=== PATIENT | female | born 1950 | race Caucasian/White ===

== ENCOUNTER 2020-09-26 13:26 | Emergency (ER) | payer MEDICARE, BC ==
[2020-09-26] MEDS ORDERED: Sodium Chloride 0.9% 10 ML Syringe FLUSH PRN (13:40)
[2020-09-26] MEDS ORDERED: Diltiazem 50 MG/10 ML SDV IVPUSH ONE (13:41)
[2020-09-26] MEDS ORDERED: Diltiazem 100 MG in Sodium Chloride 0.9% 100 ML IV SCH (13:45)
--- NOTE | 2020-09-26 14:35 | CR ---
Chest: Portable view of the chest was obtained. Comparison: Prior chest x-ray of 02/22/18. Findings: Heart size and mediastinum: Mild tortuosity of the thoracic aorta seen. Heart size is normal for portable technique. No discrete mediastinal masses are seen. Lungs: Lungs appear clear. No acute parenchymal change is seen. No pleural thickening is seen. Osseous: Slight scoliosis is noted. Nothing acute is appreciated. Impression: 1. Nothing acute is appreciated on portable chest x-ray. Diagnostic code #2
[2020-09-26] MEDS ORDERED: Diltiazem IR 60 MG Tab PO ONE (15:07)
--- NOTE | 2020-09-26 15:07 | EDM.PDOC ---
ED HPI GENERAL MEDICAL PROBLEM - General Chief Complaint: Cardiovascular Problem Stated Complaint: [facility] Time Seen by Provider: 09/26/20 13:31 Source of Information: Reports: Patient History Limitations: Reports: No Limitations - History of Present Illness INITIAL COMMENTS - FREE TEXT/NARRATIVE: The patient presents by [facility] for atrial fibrillation with RVR. She has a history of this and SVT. She was seen by Dr Babb a few years ago for this and she was not put on anything because she was doing better. She has not had many episodes. She first noticed this about 36 hours ago at 2am. She said she is short of breath and lightheaded with exertion. She has no chest pain. She also feels weak. She has no fever, chills, cough, congestionm, runny nose, or abdominal pain. Onset: Sudden Duration: Day(s): Severity: Moderate Improves with: Reports: None Worsens with: Reports: None Associated Symptoms: Reports: Shortness of Breath. Denies: Chest Pain, Cough, Fever/Chills, Headaches, Nausea/Vomiting - Related Data Allergies Allergy/AdvReac Type Severity Reaction Status Date / Time No Known Allergies Allergy Verified 09/26/20 13:35 Home Meds: Home Meds Apixaban [Eliquis] 5 mg PO BID #60 tablet 09/26/20 [Rx] Diltiazem [Cardizem CD] 120 mg PO DAILY #30 cap.er 09/26/20 [Rx] Social & Family History - Tobacco Use Tobacco Use Status *Q: Former Tobacco User Used Tobacco, but Quit: Yes Month/Year Tobacco Last Used: 1979 - Caffeine Use Caffeine Use: Reports: Coffee, Soda - Recreational Drug Use Recreational Drug Use: No ED ROS GENERAL - Review of Systems Review Of Systems: See Below Constitutional: Reports: Malaise, Weakness, Fatigue. Denies: Fever, Chills HEENT: Reports: No Symptoms Respiratory: Reports: Shortness of Breath. Denies: Cough Cardiovascular: Reports: Lightheadedness. Denies: Chest Pain Endocrine: Reports: No Symptoms GI/Abdominal: Reports: No Symptoms : Reports: No Symptoms Musculoskeletal: Reports: No Symptoms ED EXAM, GENERAL - Physical Exam Exam: See Below Exam Limited By: No Limitations General Appearance: Alert, No Apparent Distress Ears: Normal External Exam Nose: Normal Inspection Head: Atraumatic, Normocephalic Neck: Normal Inspection Respiratory/Chest: No Respiratory Distress, Lungs Clear, Normal Breath Sounds Cardiovascular: No Edema, No Murmur, Tachycardia, Irregularly Irregular GI/Abdominal: Soft, Non-Tender, No Organomegaly, No Mass Back Exam: Normal Inspection Extremities: Normal Inspection Neurological: Alert, Oriented, No Motor/Sensory Deficits #1 Interpretation EKG Date: 09/26/20 Time: 11:52 Rhythm: A-Fib Rate (Beats/Min): 157 [place]: Normal QRS: Normal ST-T: Normal QT: Normal Course - Vital Signs Last Recorded V/S: Last Vital Signs Temp 97.8 F 09/26/20 13:31 Pulse 80 09/26/20 15:30 Resp 18 09/26/20 15:30 BP 114/80 09/26/20 15:30 Pulse Ox 98 09/26/20 15:30 - Orders/Labs/Meds Orders: Active Orders 24 hr Category Date Time Status Cardiac Monitoring [RC] . DIRECTED Care 09/26/20 13:40 Active Peripheral IV Care [RC] . DIRECTED Care 09/26/20 13:41 Active Diltiazem [Cardizem] 100 mg Med 09/26/20 13:45 Active Sodium Chloride 0.9% [Normal Saline] 100 ml IV TITRATE Sodium Chloride 0.9% [Saline Flush] Med 09/26/20 13:40 Active 10 ml FLUSH ASDIRECTED PRN Peripheral IV Insertion Adult [OM.PC] Stat Oth 09/26/20 13:40 Ordered Medication Orders Diltiazem HCl 100 mg/ Sodium (Chloride) 100 mls @ 10 mls/hr IV TITRATE [facility]; Protocol Last Admin: 09/26/20 14:15 Dose: 10 mg/hr, 10 mls/hr Documented by: CAROLINE Sodium Chloride (Saline Flush) 10 ml FLUSH ASDIRECTED PRN PRN Reason: Keep Vein Open Last Admin: 09/26/20 14:15 Dose: 10 ml Documented by: CAROLINE Labs: Laboratory Tests 09/26/20 09/26/20 Range/Units 14:10 14:10 WBC 7.92 (3.98-10.04) K/mm3 RBC 4.63 (3.98-5.22) M/mm3 Hgb 14.9 (11.2-15.7) gm/dl Hct 45.2 H (34.1-44.9) % MCV 97.6 H (79.4-94.8) fl MCH 32.2 (25.6-32.2) pg MCHC 33.0 (32.2-35.5) g/dl RDW Std Deviation 46.2 (36.4-46.3) fL Plt Count 302 (182-369) K/mm3 MPV 10.8 (9.4-12.3) fl Neut % (Auto) 70.6 (34.0-71.1) % Lymph % (Auto) 22.0 (19.3-51.7) % [place] % (Auto) 6.2 (4.7-12.5) % Eos % (Auto) 0.8 (0.7-5.8) Baso % (Auto) 0.3 (0.1-1.2) % Neut # (Auto) 5.60 (1.56-6.13) K/mm3 Lymph # (Auto) 1.74 (1.18-3.74) K/mm3 [place] # (Auto) 0.49 H (0.24-0.36) K/mm3 Eos # (Auto) 0.06 (0.04-0.36) K/mm3 Baso # (Auto) 0.02 (0.01-0.08) K/mm3 Sodium 142 (136-145) mEq/L Potassium 4.2 (3.5-5.1) mEq/L Chloride 105 (98-107) mEq/L Carbon Dioxide 29 (21-32) mEq/L Anion Gap 12.2 (5-15) BUN 19 H (7-18) mg/dL Creatinine 1.0 (0.55-1.02) mg/dL Est Cr Clr Drug Dosing 44.56 mL/min Estimated GFR (MDRD) 55 (>60) mL/min BUN/Creatinine Ratio 19.0 H (14-18) Glucose 97 (83-115) mg/dL Calcium 9.6 (8.5-10.1) mg/dL Magnesium 2.1 (1.8-2.4) mg/dl Total Bilirubin 0.4 (0.2-1.0) mg/dL AST 12 L (15-37) U/L ALT 16 (14-59) U/L Alkaline Phosphatase 51 (46-116) U/L Troponin I < 0.017 (0.00-0.056) ng/mL Total Protein 6.9 (6.4-8.2) g/dl Albumin 3.6 (3.4-5.0) g/dl Globulin 3.3 gm/dL Albumin/Globulin Ratio 1.1 (1-2) TSH 3rd Generation 2.261 (0.358-3.74) uIU/mL Meds: Medications Generic Name Dose Route Start Last Admin Trade Name Freq PRN Reason Stop Dose Admin Diltiazem HCl 100 mg/ Sodium 100 mls @ 10 mls/hr 09/26/20 13:45 09/26/20 14:15 Chloride IV 10 mg/hr TITRATE BLANCA 10 mls/hr Administration Protocol 10 MG/HR Sodium Chloride 10 ml 09/26/20 13:40 09/26/20 14:15 Saline Flush FLUSH 10 ml ASDIRECTED PRN Administration Keep Vein Open Discontinued Medications Generic Name Dose Route Start Last Admin Trade Name Freq PRN Reason Stop Dose Admin Diltiazem HCl 10 mg 09/26/20 13:41 09/26/20 14:15 Cardizem IVPUSH 09/26/20 13:42 10 mg ONETIME ONE Administration Diltiazem HCl 60 mg 09/26/20 15:07 09/26/20 15:14 Cardizem PO 09/26/20 15:08 60 mg ONETIME ONE Administration - Re-Assessments/Exams Free Text/Narrative Re-Assessment/Exam: 09/26/20 15:11 I ordered an IV saline lock, cardizem bolus of 10mg and then a drip at 10mg/hr, CXR, and labs. Her EKG from the clinic shows atrial fibrillation with RVR and no acute changes. Her CBC and CMP look good. Her troponin and TSH are normal. Her heart rate has slowed down to the 70s and 80s. I will stop the drip and give her oral cardizem and she if her rate will stay controlled. 09/26/20 15:40 Her rate has stayed controlled. I called [facility] in [place] and talked with Dr Egan the interventional physiatrist construction management assistant and he recommended cardizem 120mg daily and eliquis 5mg 2 times per day. I called [facility] Mccormick in [place] and she was in agreement with the plan. He also wanted her to follow up with cardiology. Departure - Departure Time of Disposition: 15:45 Disposition: Home, Self-Care 01 Condition: Good Clinical Impression: Atrial fibrillation with RVR Prescriptions: Diltiazem [Cardizem CD] 120 mg PO DAILY #30 cap.er Apixaban [Eliquis] 5 mg PO BID #60 tablet Referrals: Karen Mccormick [employer] SET UP OPERATOR [Primary Care Provider] - 1 Week Forms: ED Department Discharge Additional Instructions: Take cardizem 120mg daily. Take the eliquis 5mg 2 times per day. Follow up with [facility] next week and [facility]ology in a couple of weeks. Please return if you are worse. Sepsis Event Note (ED) - Evaluation Sepsis Screening Result: No Definite Risk - Focused Exam Vital Signs: Vital Signs Temp Pulse Resp BP Pulse Ox 09/26/20 15:30 80 18 114/80 98 09/26/20 13:31 97.8 F 110 H 14 122/72 97 - My Orders Last 24 Hours: My Active Orders 09/26/20 13:40 Cardiac Monitoring [RC] . DIRECTED Sodium Chloride 0.9% [Saline Flush] 10 ml FLUSH ASDIRECTED PRN Peripheral IV Insertion Adult [OM.PC] Stat 09/26/20 13:41 Peripheral IV Care [RC] . DIRECTED 09/26/20 13:45 Diltiazem [Cardizem] 100 mg Sodium Chloride 0.9% [Normal Saline] 100 ml IV TITRATE - Assessment/Plan Last 24 Hours: My Active Orders 09/26/20 13:40 Cardiac Monitoring [RC] . DIRECTED Sodium Chloride 0.9% [Saline Flush] 10 ml FLUSH ASDIRECTED PRN Peripheral IV Insertion Adult [OM.PC] Stat 09/26/20 13:41 Peripheral IV Care [RC] . DIRECTED 09/26/20 13:45 Diltiazem [Cardizem] 100 mg Sodium Chloride 0.9% [Normal Saline] 100 ml IV TITRATE
[2020-09-26] MEDS ORDERED: Apixaban 5 MG Tab PO ONE (15:42)
== END 2020-09-26 16:07 | disposition home or self-care (01) ==
LOC: JD.ED 13:26
DX: I48.91 Unspecified atrial fibrillation (principal); Z79.01 Long term (current) use of anticoagulants; Z87.891 Personal history of nicotine dependence; Z79.899 Other long term (current) drug therapy
CPT/HCPCS: 36415; 71045; 80053; 83735; 84443; 84484; 85025; 96365; 99285; A9270; J3490; J7050; 93010; 99284